=== PATIENT | male | born 1990 | race Caucasian/White ===

== ENCOUNTER 2017-11-14 15:16 | Emergency (ER) | payer MEDICARE, MEDICAID ==
[2017-11-14 16:01] LABS: ABS Basophils 0.1 10^3/ul (0-0.2); ABS Eosinophils 0 10^3/ul (0-0.6); ABS Monocytes 0.8 10^3/ul (0-0.8); ABS Neutrophils 5.1 10^3/ul (1.5-7.7); ABS Nucleated RBC 0 10^3/ul; Eosinophil % 0.3 % (0-6); Hematocrit 45 % (42-52); Hemoglobin 15.2 g/dl (14.0-18.0); Lymphocyte % 25.4 % (25-47); Mean Corpuscular HGB Conc 34 g/dl (31-36); Mean Corpuscular Hemoglobin 29 pg (27-31); Mean Corpuscular Volume 85 fL (80-94); Mean Platelet Volume 9.2 um3 (7.4-10.4); Nucleated Red Blood Cells % 0.1; Platelet Count 260 10^3/ul (150-450); Red Blood Count 5.27 10^6/ul (4.0-5.4); Red Cell Distribution Width 13 % (10.5-15); White Blood Count 8.1 10^3/ul (3.5-10.8)
[2017-11-14 16:09] LABS: INR 0.95 (0.77-1.02)
[2017-11-14 16:19] LABS: EGFR Non-African American 113.5 (>60)
[2017-11-14 18:03] VITALS: BP 130/92
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
== END 2017-11-14 18:02 | disposition home or self-care (01) ==
LOC: ED 15:16
DX: R00.2 Palpitations (principal); R42 Dizziness and giddiness; R50.9 Fever, unspecified; R53.83 Other fatigue; R03.0 Elevated blood-pressure reading, without diagnosis of hypertension; R61 Generalized hyperhidrosis; R06.02 Shortness of breath; F98.8 Other specified behavioral and emotional disorders with onset usually occurring in childhood and adolescence; F39 Unspecified mood [affective] disorder
CPT/HCPCS: 36415; 80053; 83605; 83735; 84443; 84484; 85025; 85610; 99283